=== PATIENT | female | born 1940 | race Caucasian/White ===

== ENCOUNTER → 2016-10-19 | Outpatient (CLI) | payer OTHER ==
--- NOTE | 2016-10-19 09:46 | US ---
Bilateral Duplex/Doppler Carotid Sonography History: Right-sided neck pain, atherosclerosis on dental x-ray. Comparison: Carotid ultrasound September 08, 2013. Technique: The cervical portions of the carotid and vertebral arteries were imaged and interrogated by color and pulsed Duplex/Doppler. Spectral analysis was performed. Findings Right Carotid: Right CCA peak systolic velocity = 77 cm/sec Right ECA peak systolic velocity = 58 cm/sec Right ICA peak systolic velocity = 66 cm/sec Right ICA/CCA systolic velocity ratio = 0.9 Velocities correlate to less than 50 % diameter stenosis of the origin of the right internal carotid artery with respect to the normal distal internal carotid artery. There is slight increase in mild to moderate calcified plaque involving the right carotid bulb and proximal right internal carotid arter y. Left Carotid: Left CCA peak systolic velocity = 75 cm/sec Left ECA peak systolic velocity = 63 cm/sec Left ICA peak systolic velocity = 75 cm/sec Left ICA/CCA systolic velocity ratio = 1.0 Velocities correlate to less than 50 % diameter stenosis of the origin of the left internal carotid a rtery with respect to the normal distal internal carotid artery. There is slight increase in mild to moderate calcified plaque involving the left carotid bulb and proximal left internal carotid artery. Vertebral Arteries: Antegrade flow is shown by pulsed Doppler of each vertebral artery. Impression: No hemodynamically significant stenosis by systolic velocity criteria. Measurement of carotid stenosis is based on velocity parameters that correlate the residual internal carotid diameter with [place] Symptomatic Carotid Endarterectomy Trial (NASCET) based stenosis levels.
--- NOTE | 2016-10-19 10:26 | US ---
Ultrasound Neck Soft Tissues History: D72.820, lymphocytosis (symptomatic), E78.2 mixed hyperlipidemia, I10 essential (primary) h ypertension, I65.23 occlusion and stenosis of bilateral carotid arteries, M54.2 cervicalgia, Z82.49, family history of ischemic heart disease and other diseases of the circulatory system. Right anterio r cervical tenderness with no palpable mass. Technique: Longitudinal and transverse ultrasound imaging of the right neck soft tissues. Findings: A few benign-appearing right anterior neck lymph nodes less than a centimeter in size witho ut significant adenopathy. No focal fluid collections or abscess identified. In the right lobe of the thyroid there is a solid heterogenous 1.1 x 0.9 x 0.8 cm thyroid nodule. Impression: 1. No source for the patient's right-sided neck pain. 2. Right-sided 1.1 cm thyroid nodule for which follow-up ultrasound thyroid in six months is recommen ded. 3. Consider CT neck soft tissues or MRI cervical spine if there is continued clinical concern for rig ht neck pain.
== END ==
LOC: CIMAGING 08:14
PROVIDERS: ATTEND Family Medicine
DX: E04.1 Nontoxic single thyroid nodule (principal); M54.2 Cervicalgia; D72.820 Lymphocytosis (symptomatic); E78.2 Mixed hyperlipidemia; I10 Essential (primary) hypertension; I65.23 Occlusion and stenosis of bilateral carotid arteries; Z82.49 Family history of ischemic heart disease and other diseases of the circulatory system
CPT/HCPCS: 76536-PO; 93880-PO

== ENCOUNTER → 2017-05-15 | Outpatient (CLI) | payer OTHER | LOC: FIMAGING 08:14 | PROVIDERS: ATTEND Family Medicine | DX: E04.1 Nontoxic single thyroid nodule (principal) ==

== ENCOUNTER → 2017-06-12 | Outpatient (CLI) | payer OTHER | LOC: FIMAGING 07:31 | PROVIDERS: ATTEND Family Medicine | DX: Z12.31 Encounter for screening mammogram for malignant neoplasm of breast (principal) | CPT/HCPCS: G0202 ==

== ENCOUNTER → 2017-11-20 | Outpatient (CLI) | payer OTHER | LOC: FIMAGING 14:03 | PROVIDERS: ATTEND Family Medicine | DX: E04.2 Nontoxic multinodular goiter (principal) ==

== ENCOUNTER 2017-11-22 05:36 | Observation (INO) | payer OTHER ==
[2017-11-22] MEDS ORDERED: LIDOCAINE 1% 2 ML INJ ID PRN (06:02)
[2017-11-22] MEDS ORDERED: LR 1,000 ML IV ONE (06:02)
[2017-11-22] MEDS ORDERED: ceFAZolin 2 GM/SWFI 2 GM/20 ML SYR IVP ONE (06:47)
[2017-11-22] MEDS ORDERED: ACETAMINOPHEN 500 MG TAB PO ONE (06:47)
--- NOTE | 2017-11-22 06:48 | PDHPUP ---
History & Physical Update H&P update statement: This history and physical update is based on an assessment of the patient which was completed after admission or registration (within 24 hours), but prior to the surgery/procedure. H&P update: H&P reviewed & patient examined, no change in patient's condition since H&P completed
[2017-11-22] MEDS ORDERED: BUPIVACAINE 0.25% 30 ML SDV ONE ×2 (07:00→07:16)
[2017-11-22] MEDS ORDERED: THROMBIN (BOVINE) 5,000 UNIT VIAL TP ONE (07:00)
[2017-11-22] MEDS ORDERED: BACITRACIN 50,000 UNITS/10 ML SYR IRR ONE (07:00)
[2017-11-22] MEDS ORDERED: CHLORHEXIDINE GLUC HIBICLENS 118 ML BTL TP ONE (07:00)
[2017-11-22] MEDS ORDERED: DEPO METHYLPREDNISOLONE 40 MG/ML SDV ONE (07:16)
[2017-11-22] MEDS ORDERED: fentaNYL 250 MCG/5 ML INJ ONE (07:23)
[2017-11-22] MEDS ORDERED: PROPOFOL 200 MG/20 ML VIAL ONE (07:24)
[2017-11-22] MEDS ORDERED: PROPOFOL/EMULSION 500 MG/50 ML BOTTLE IV ONE (07:54)
--- NOTE | 2017-11-22 08:27 | PDANEPAE ---
ANE Past Medical History - Cardiovascular History Hx Hypertension: Yes Hx Arrhythmias: No Hx Chest Pain: No Hx Coronary Artery / Peripheral Vascular Disease: No Hx CHF / Valvular Disease: No Hx Palpitations: No Cardiovascular History Comment: WHITE COAT SYNDROME - Pulmonary History Hx COPD: No Hx Asthma/Reactive Airway Disease: No Hx Recent Upper Respiratory Infection: No Hx Oxygen in Use at Home: No Hx Sleep Apnea: No Sleep Apnea Screening Result - Last Documented: Negative Pulmonary History Comment: INFLUENZA 08/2017 - Neurologic History Hx Cerebrovascular Accident: No Hx Seizures: No Hx Dementia: No - Endocrine History Hx Diabetes: No - Renal History Hx Renal Disorders: No - Liver History Hx Hepatic Disorders: No - Neurological & Psychiatric Hx Hx Neurological and Psychiatric Disorders: Yes Neurological / Psychiatric History Comment: ANXIETY - Cancer History Hx Cancer: Yes Cancer History Comment: SKIN - Congenital Disorder History Hx Congenital Disorders: No - GI History Hx Gastrointestinal Disorders: Yes Gastrointestinal History Comment: REFLUX. PREV GI ULCER N-SAID RELATED - Other Health History Other Health History: CHRONIC INSOMNIA. LT FOOT N/T. VERTIGO 2 YRS AGO - Chronic Pain History Chronic Pain: Yes (LOWER BACK,BUTTOCKS AND DOWN BOTH LEGS) - Surgical History Prior Surgeries: RUSS X2. MOH'S FOR SKIN CA. LT KNEE SCOPE 1998 ANE Review of Systems Review of Systems: - Exercise capacity METS (RN): 4 METS ANE Patient History - Allergies Allergies/Adverse Reactions: lactose Allergy (Verified 11/21/17 14:55) - Home Medications Home Medications: Aspirin 325 mg (OTC) DAILY 09/28/13 [Last Taken 11/19/17] Benicar DAILY06 09/28/13 [Last Taken 11/21/17] Hydrochlorothiazide DAILY06 09/28/13 [Last Taken 11/21/17] Lipitor 10 mg (RX) DAILY06 09/28/13 [Last Taken 11/22/17 04:45] Omeprazole DAILY06 09/28/13 [Last Taken 11/22/17 04:45] Amlodipine Besylate HS 11/21/17 [Last Taken 11/21/17] Atenolol BID 11/21/17 [Last Taken 11/22/17 04:45] Coq-10 DAILY 11/21/17 [Last Taken 11/21/17] Fish Oil 1000 mg (*) DAILY 11/21/17 [Last Taken 11/21/17] Herbals/Supplements -Info Only DAILY 11/21/17 [Last Taken 11/21/17] Multivitamin (*) DAILY 11/21/17 [Last Taken 11/21/17] Tumeric DAILY 11/21/17 [Last Taken 11/21/17] - NPO status NPO Since - Liquids (Date): 11/21/17 NPO Since - Liquids (Time): 04:45 NPO Since - Solids (Date): 11/21/17 NPO Since - Solids (Time): 18:00 - Smoking Hx Smoking Status: Never smoked ANE Labs/Vital Signs - Labs Result Diagrams: 11/22/17 06:35 - Vital Signs Blood Pressure: 162/64 Heart Rate: 60 Respiratory Rate: 16 O2 Sat (%): 97 Height: 152.4 cm Weight: 47.627 kg
[2017-11-22] MEDS ORDERED: fentaNYL 100 MCG/2 ML INJ IVP PRN (08:30)
[2017-11-22] MEDS ORDERED: NALOXONE HCL 0.4 MG/ML INJ IVP PRN (08:30)
[2017-11-22] MEDS ORDERED: PROMETHAZINE HCL 25 MG/ML INJ IVP PRN (08:30)
[2017-11-22] MEDS ORDERED: LABETALOL HCL 5 MG/ML 20 ML MDV IVP PRN (08:30)
--- NOTE | 2017-11-22 08:30 | PDANEPAE ---
ANE Past Medical History - Cardiovascular History Hx Hypertension: Yes Hx Arrhythmias: No Hx Chest Pain: No Hx Coronary Artery / Peripheral Vascular Disease: No Hx CHF / Valvular Disease: No Hx Palpitations: No Cardiovascular History Comment: WHITE COAT SYNDROME - Pulmonary History Hx COPD: No Hx Asthma/Reactive Airway Disease: No Hx Recent Upper Respiratory Infection: No Hx Oxygen in Use at Home: No Hx Sleep Apnea: No Sleep Apnea Screening Result - Last Documented: Negative Pulmonary History Comment: INFLUENZA 08/2017 - Neurologic History Hx Cerebrovascular Accident: No Hx Seizures: No Hx Dementia: No - Endocrine History Hx Diabetes: No - Renal History Hx Renal Disorders: No - Liver History Hx Hepatic Disorders: No - Neurological & Psychiatric Hx Hx Neurological and Psychiatric Disorders: Yes Neurological / Psychiatric History Comment: ANXIETY - Cancer History Hx Cancer: Yes Cancer History Comment: SKIN - Congenital Disorder History Hx Congenital Disorders: No - GI History Hx Gastrointestinal Disorders: Yes Gastrointestinal History Comment: REFLUX. PREV GI ULCER N-SAID RELATED - Other Health History Other Health History: CHRONIC INSOMNIA. LT FOOT N/T. VERTIGO 2 YRS AGO - Chronic Pain History Chronic Pain: Yes (LOWER BACK,BUTTOCKS AND DOWN BOTH LEGS) - Surgical History Prior Surgeries: RUSS X2. MOH'S FOR SKIN CA. LT KNEE SCOPE 1998 ANE Review of Systems Review of Systems: - Exercise capacity METS (RN): 4 METS ANE Patient History - Allergies Allergies/Adverse Reactions: lactose Allergy (Verified 11/21/17 14:55) - Home Medications Home Medications: Aspirin 325 mg (OTC) DAILY 09/28/13 [Last Taken 11/19/17] Benicar DAILY06 09/28/13 [Last Taken 11/21/17] Hydrochlorothiazide DAILY06 09/28/13 [Last Taken 11/21/17] Lipitor 10 mg (RX) DAILY06 09/28/13 [Last Taken 11/22/17 04:45] Omeprazole DAILY06 09/28/13 [Last Taken 11/22/17 04:45] Amlodipine Besylate HS 11/21/17 [Last Taken 11/21/17] Atenolol BID 11/21/17 [Last Taken 11/22/17 04:45] Coq-10 DAILY 11/21/17 [Last Taken 11/21/17] Fish Oil 1000 mg (*) DAILY 11/21/17 [Last Taken 11/21/17] Herbals/Supplements -Info Only DAILY 11/21/17 [Last Taken 11/21/17] Multivitamin (*) DAILY 11/21/17 [Last Taken 11/21/17] Tumeric DAILY 11/21/17 [Last Taken 11/21/17] - NPO status NPO Since - Liquids (Date): 11/21/17 NPO Since - Liquids (Time): 04:45 NPO Since - Solids (Date): 11/21/17 NPO Since - Solids (Time): 18:00 - Smoking Hx Smoking Status: Never smoked ANE Labs/Vital Signs - Labs Result Diagrams: 11/22/17 06:35 - Vital Signs Blood Pressure: 162/64 Heart Rate: 60 Respiratory Rate: 16 O2 Sat (%): 97 Height: 152.4 cm Weight: 47.627 kg ANE Physical Exam - Airway Neck exam: FROM Mallampati Score: Class 1 Mouth exam: normal dental/mouth exam - Pulmonary Pulmonary: no respiratory distress - Cardiovascular Cardiovascular: regular rate and rhythym - ASA Status ASA Status: II ANE Anesthesia Plan Anesthesia Plan: general endotracheal anesthesia
[2017-11-22] MEDS ORDERED: hydrALAZINE 20 MG/ML VIAL IVP PRN (08:31)
[2017-11-22] MEDS ORDERED: ROCURONIUM 50 MG/5 ML VIAL ONE (08:51)
[2017-11-22] MEDS ORDERED: LIDOCAINE 2% 5 ML SDV ONE (08:51)
[2017-11-22] MEDS ORDERED: SUGAMMADEX SODIUM 200 MG/2 ML VIAL IVP ONE (09:37)
--- NOTE | 2017-11-22 09:41 | POSTOPPROG ---
Post Op Note Date of Operation: 11/22/17 Surgeon: Ailyn Ortiz Animal Care Technician: Cherise Ching NP Anesthesia: GET(General Endotracheal) Pre-op Diagnosis: Lumbar stenosis Procedure: L3-4 laminectomy Inf/Abcess present in the surg proc area at time of surgery?: No Depth: Deep Incisional (Fascial) EBL: 50-100 Total fluids administered: see anesthesia Complications: none Date of Surgery: 11/22/17 Post Op Day: 0 Assessment/Plan: Assessment: 77 yr old s/p L3-4 laminectomy for lower back and bilateral leg pain Plan: -initially following surgery, patient had no pain in PACU, she then began to experience terrible RLE pain. Toradol given -Will admit patient for observation/pain control -PT/OT -Please call neurosurgery with any questions/concerns Subjective: Patient waking up in PACU Objective: Waking up in PACU PERRLA No facial droop 5/5 BLE, BUE Sensation intact to light touch BLE Dressing CDI Appropriate Neuro Check Frequency Ordered: Yes
[2017-11-22] MEDS ORDERED: METHOCARBAMOL 750 MG TAB PO PRN (09:47)
[2017-11-22] MEDS: HYDROCODONE/APAP 5/325 TAB PO PRN ×3 (11:19→23:38)
[2017-11-22] MEDS ORDERED: MAGNESIUM HYDROXIDE 30 ML UDCUP PO PRN (11:30)
[2017-11-22] MEDS ORDERED: LACTULOSE 20 GM/30 ML UDCUP PO PRN (11:30)
[2017-11-22] MEDS ORDERED: ONDANSETRON DISINTEGRATING 4 MG TAB PO PRN (11:30)
[2017-11-22] MEDS ORDERED: ONDANSETRON 4 MG/2 ML VIAL IVP PRN (11:30)
[2017-11-22] MEDS ORDERED: POLYETHYLENE GLYCOL 3350 17 GM PKT PO PRN (11:30)
[2017-11-22] MEDS ORDERED: BISACODYL 10 MG SUPP PR PRN (11:30)
[2017-11-22] MEDS ORDERED: diphenhydrAMINE 25 MG CAP PO PRN (11:30)
[2017-11-22] MEDS ORDERED: KETOROLAC 30 MG/1 ML SDV IVP ONE (12:01)
[2017-11-22] MEDS ORDERED: DIAZEPAM 2 MG TAB PO PRN (12:01)
--- NOTE | 2017-11-22 13:20 | GOP ---
[f rep st] OPERATIVE REPORT DATE OF OPERATION: 11/22/2017 SURGEON: Maggie Ortiz MD BUSINESS ANALYSIS ANALYST: Cherise Ching, Nurse Practitioner PREOPERATIVE DIAGNOSIS: 1. Severe spinal stenosis, L3-4 with bilateral lumbosacral radiculopathy. 2. Severe disk degenerative disease L2-3. 3. Lumbar spondylolisthesis L5-S1. 4. Multilevel lumbar spondylosis. POSTOPERATIVE DIAGNOSIS: 1. Severe spinal stenosis, L3-4 with bilateral lumbosacral radiculopathy. 2. Severe disk degenerative disease L2-3. 3. Lumbar spondylolisthesis L5-S1. 4. Multilevel lumbar spondylosis. PROCEDURE PERFORMED: Bilateral L3-4 laminectomy with medial facetectomy and microdiskectomy ([id number], microscope). FINDINGS: ESTIMATED BLOOD LOSS: 25 cc. INDICATIONS: The patient is a 77-year-old who really is having great difficulty walking because of t errible pain radiating down the right leg, and she developed numbness in the left leg. She had bilat eral symptoms. The MRI of her lumbar spine demonstrates a very large central and right paracentral d isk protrusion at L3-4, in combination with severe facet arthropathy. There is even a mild degree of spondylolisthesis there, although really this was quite minimal. She had severe ligamentum flavum h ypertrophy and facet arthropathy at that level, and I suggested a bilateral decompression with a lumb ar laminectomy. The possible need for additional surgery, the risk of CSF leak, continued symptoms w ere discussed. She knew that we were not going to fix all of the degenerative problems in her spine, but our goal was to try to get her some relief of the radiating leg pain. She knew these risks and she wanted to proceed. DESCRIPTION OF PROCEDURE: Patient was taken to the operating room, placed in the supine position. G eneral anesthesia was begun. She was flipped prone onto the Piotr frame. Care was taken to pad all points of contact. Her back was sterilely prepped and draped in the usual fashion. A localizing x- ray was taken. We made a 2 cm incision above the L3-4 interspace. A self-retaining retractor was pl aced as we dissected down through the fascia, and a subperiosteal dissection was made down the lamina of L3-4. A localizing x-ray was taken. Under the operating microscope, we drilled a rostral L4 [place] inotomy and an inferior L3 bilateral hemilaminotomy with bilateral medial facetectomies and opened li gamentum flavum. There was very severe spinal stenosis, and we worked our way out laterally to the l ateral edge of the thecal sac, undercutting the facet joints bilaterally from the L4 pedicle all the way up to the inferior L3 pedicle, and a great bilateral decompression was performed. We then went f rom the right-hand side, swept the thecal sac and the traversing L4 nerve root medially from the righ t and in a central location underneath the thecal sac was a large subligamentous free disk fragment h erniation contained by the posterior and longitudinal ligament. It was difficult to separate the dur a from this, but we continued working, and then we found a small window into this pocket where the di sk was and we opened it with a black hook. We did not use a blade. After this was done, we were abl e to deliver some small fragments which further freed up the dura, and then we were able to squeeze t he remaining free fragment disk out from underneath the PLL using the ball-tip probe. We did not agg ressively go into the L3-4 disk. The PLL remained intact. We then irrigated large amounts of antibi otic saline and then closed the incision in multiple layers using Vicryl sutures. There were no comp lications. The patient tolerated the procedure well. COMPLICATIONS: None. /[id number]/MODL
[2017-11-22] MEDS ORDERED: ACETAMINOPHEN 500 MG TAB PO SCH (14:00)
[2017-11-22] MEDS: GABAPENTIN 300 MG CAP PO SCH ×2 (14:08→20:16)
[2017-11-22] MEDS ORDERED: KETOROLAC 15 MG/1 ML SDV IVP PRN (14:49)
[2017-11-22] MEDS ORDERED: ACETAMINOPHEN 325 MG TAB PO PRN (14:50)
[2017-11-22] MEDS: SENNOSIDES/DOCUSATE SODIUM TAB PO SCH (20:16)
[2017-11-22] MEDS: ATENOLOL 25 MG TAB PO SCH (20:16)
[2017-11-22] MEDS: FAMOTIDINE 20 MG TAB PO SCH (20:16)
[2017-11-22] MEDS ORDERED: amLODIPine BESYLATE 5 MG TAB PO SCH (21:00)
[2017-11-23 05:25] VITALS: O2SAT 93
[2017-11-23] MEDS: GABAPENTIN 300 MG CAP PO SCH (05:30)
[2017-11-23 07:17] VITALS: BP 151/68; PULSE 66; RESP 14; TEMP 98.4
[2017-11-23] MEDS: HYDROCODONE/APAP 5/325 TAB PO PRN ×2 (07:47→12:24)
[2017-11-23] MEDS: SENNOSIDES/DOCUSATE SODIUM TAB PO SCH (07:47)
[2017-11-23] MEDS: ATENOLOL 25 MG TAB PO SCH (07:48)
[2017-11-23] MEDS: FAMOTIDINE 20 MG TAB PO SCH (07:48)
[2017-11-23] MEDS ORDERED: OLMESARTAN MEDOXOMIL 20 MG TAB PO SCH (09:00)
[2017-11-23] MEDS ORDERED: HYDROCHLOROTHIAZIDE 25 MG TAB PO SCH (09:00)
[2017-11-23] MEDS ORDERED: ATORVASTATIN CALCIUM 20 MG TAB PO SCH (09:00)
--- NOTE | 2017-11-23 10:58 | NEUSURGPN ---
Date of Surgery: 11/22/17 Post Op Day: 1 Assessment/Plan: 77 yo female s/p L3/4 laminectomy POD #1 - neuro stable - leg pain improved compared to immediately postop period yesterday - PT/OT - pain controlled - discharge to home today Discussed with Dr. Ortiz Subjective: Pain improved compared to yesterday. Still having some bilateral LE pain similar to before surgery. Objective: Awake. Alert. Following commands Muscle strength full at 5/5 Sensation intact - Physician Discussed Patient with : [facility] Physical Exam - Vitals, I&O, Labs I and O 11/22/17 11/23/17 11/24/17 05:59 05:59 05:59 Intake Total 1570 Output Total 1475 Balance 95 Weight 47.627 kg 47.627 kg Intake: Oral (ml) 470 IV Intake (ml) 1100 Output: Urine (ml) 1450 Toilet 1450 Estimated Blood Loss (ml) 25 Other: Number of Voids Toilet 1 Vital Signs Temp Pulse Resp BP Pulse Ox 36.9 C 66 14 151/68 H 93 11/23/17 07:16 11/23/17 07:16 11/23/17 07:16 11/23/17 07:16 11/23/17 07:16 Laboratory Results 11/22/17 06:35 ICD10 Worksheet Patient Problems: Problems Problem Status Onset Lumbar stenosis Acute - ICD10 Problem Qualifiers (1) Lumbar stenosis
--- NOTE | 2017-11-23 12:45 | PDIAF ---
- Diagnosis Diagnosis: Lumbar stenosis Code Status: Full Code - Medication Management Discharge Medications: Medications to Continue on Transfer Atorvastatin Calcium [Lipitor 20 mg (*)] 20 mg PO DAILY #0 09/28/13 [Last Taken 11/22/17 04:45] Hydrochlorothiazide [HCTZ (*)] 25 mg PO DAILY #0 09/28/13 [Last Taken 11/21/17] Olmesartan Medoxomil [Benicar 20 mg (*)] 40 mg PO DAILY #0 09/28/13 [Last Taken 11/21/17] Omeprazole Magnesium [Prilosec] 10 mg PO DAILY #0 09/28/13 [Last Taken 11/22/17 04:45] Atenolol [Tenormin 25 mg (*)] 25 mg PO BID #0 11/21/17 [Last Taken 11/22/17 04: 45] Herbals/Supplements -Info Only 1 ea PO DAILY #0 11/21/17 [Last Taken Unknown] Multivitamins [Multivitamin (*)] 1 each PO DAILY #0 11/21/17 [Last Taken ] [place]-3 Fatty Acids [Fish Oil 1000 mg (*)] 1,000 mg PO DAILY #0 11/21/17 [Last Taken 11/21/17] amLODIPine BESYLATE [Norvasc 5 mg (*)] 5 mg PO HS #0 11/21/17 [Last Taken ] Hydrocodone/APAP 5/325 [[place] 5/325 (*)] 1 tab PO Q4HRS PRN #60 tab 11/22/17 [ Last Taken Unknown] Methocarbamol [Robaxin 750 mg (*)] 750 mg PO TID PRN #60 tab 11/22/17 [Last Taken Unknown] Ranitidine HCl [Zantac] 300 mg PO HS 11/22/17 [Last Taken 11/21/17] Suvorexant [Belsomra] 10 mg PO HS PRN 11/22/17 [Last Taken 4 Days Ago ~11/18/17] Aspirin 325 mg (OTC) 325 mg PO DAILY #30 11/29/17 [Last Taken Unknown] Discharge Medications: Refer to the Discharge Home Medication list for PRN reason. - Orders Services needed: Home Care, Physical Therapy, Occupational Therapy Home Care Face to Face: I certify that this patient was under my care and that I had the required [id number] encounter meeting the encounter requirements on the discharge day. My findings support the fact that the patient is homebound as defined in Home Care Face to Face Continued: CMS Chapter 7 Medicare Benefits Manual 30.1.1 , The condition of the patient is such that there exists a normal inability to leave home and consequently, leaving home would require a considerable and taxing effort. Diet Recommendation: no restrictions on diet Diet Texture: Regular Texture Diet Wound Care Instructions: Ok to shower on Saturday. Be gentle, no scrubbing. Sutures/[place] Site: Follow up with Dr. Ortiz in 2 weeks to check incision. Activity/Weight Bearing Restrictions: No lifting more than 10 pounds or bending/ twisting. - Follow Up Care Current Providers and Referrals: Bertha Olivia MD [Primary Care Provider] - Ailyn Ortiz MD [Medical Doctor] - follow up in 2 weeks
--- NOTE | 2017-11-23 15:02 | ASDISCHSUM ---
Discharge Information Plan Status: Medically Cleared to Leave: Discharge Date:11/23/2017 01:05 PM D/C Disposition: ADT D/C Disposition:Home, Routine, Self-Care Projected Discharge Date:11/23/2017 11:00 AM Transportation at D/C: Discharge Delay Reason: Follow-Up Date:11/23/2017 11:00 AM Discharge Slot: Final Diagnosis: Placement Information Referral Type:*Home Health Care Services Referral ID:[id number] Provider Name:[facility] Address 1:[address] Address 2: City:[place] Selection Factors: State:[place] Patient Contact Information Contact Name:GUSTAVO Relationship: Address:[address] [place] [address] City:[place] Alternate Phone: State/Zip Code:[place] [address] Email: Financial Information Financial Class:Medicare Advantage Plans Primary Plan Desc:[facility] AD[employer] PLANS Primary Plan Number:[id number] Secondary Plan Desc: Secondary Plan Number: Assessment Information Case Management Discharge Plan Note Case Management Discharge Discharge Order Complete? Answers: Yes Transportation Arranged Answers: Family/Friends Faxed Final Orders Answers: Yes Family Notified Answers: Yes Discharge Comments Notes: Patient discharged home with . Home PT/OT with [facility] [place] to call report. Date Signed: 11/23/2017 12:52 PM Electronically Signed By:Rachele Child RN Intervention Information
[2017-11-25] MEDS ORDERED: ENOXAPARIN 40 MG/0.4 ML SYR SC SCH (09:00)
--- NOTE | 2017-11-26 14:41 | GDS ---
[f rep st] DISCHARGE SUMMARY PRIMARY DIAGNOSIS: Lumbar stenosis. OPERATIONS AND PROCEDURES: L3-4 laminectomy on November 22, 2017. HOSPITAL COURSE: Patient is a 77-year-old female who was brought into the hospital on November 22, 2017 for a scheduled L3-[address] Ortiz. The patient's preoperative symptoms were primaril y lower back pain with bilateral leg symptoms. The patient tolerated the procedure without complicat ion and initially woke up in the postanesthesia care unit without any leg pain at all. The patient w as then transitioning, preparing to get discharged home and began to experience intense right posteri or leg pain. Patient was given [place] and gabapentin, and admitted to the floor for observation. Lori lim's right leg pain ultimately resolved with the pain medications and gabapentin. Patient was disc harged home on November 23, 2017. COMPLICATIONS: None. CONSULTATIONS: None. DISCHARGE CONDITION: Stable. DISCHARGE INSTRUCTIONS: Patient is to avoid any bending or twisting at the waist and is not to lift any more than 10 pounds for the next 2 weeks. Patient will leave dressing on for 3 days and then may remove in shower at that time. Patient instructed to limit her showers to approximately 5 minutes f or the first 2 to 3 weeks following surgery. The patient will leave the Steri-Strips in place and is scheduled to follow up with us in the office for her routine 2 week postop visit. Patient is instru cted to call our office sooner with any questions or concerns regarding her surgery. /[id number]/MODL
--- NOTE | 2017-11-28 07:55 | GPROG ---
[f rep st] PROGRESS NOTE The patient's cardiovascular status is normal, stable. The patient's mental status is slightly sedated, easily arousable. Nausea/vomiting control are satisfactory at this time with p.r.n. treatment ordered. Pain control is satisfactory at this time with the p.r.n. treatment ordered. Complications due to anesthesia are none noted at this time. /[id number]/MODL
== END 2017-11-23 13:05 | disposition home health service (06) ==
LOC: FSGY 05:36 → F3N 11:30
PROVIDERS: ADMIT Neurological Surgery; ATTEND Neurological Surgery
PROC: 00NY0ZZ Release Lumbar Spinal Cord, Open Approach (ICD-10-PCS; principal; 2017-11-22 07:30)
PROC: 0SB20ZZ Excision of Lumbar Vertebral Disc, Open Approach (ICD-10-PCS; principal; 2017-11-22 07:30)
PROC: BR191ZZ Fluoroscopy of Lumbar Spine using Low Osmolar Contrast (ICD-10-PCS; 2017-11-22 07:30)
DX: M48.061 Spinal stenosis, lumbar region without neurogenic claudication (principal); G89.18 Other acute postprocedural pain; M54.16 Radiculopathy, lumbar region; M54.17 Radiculopathy, lumbosacral region; M43.17 Spondylolisthesis, lumbosacral region; M47.817 Spondylosis without myelopathy or radiculopathy, lumbosacral region; F51.01 Primary insomnia; M51.36 Other intervertebral disc degeneration, lumbar region; I10 Essential (primary) hypertension
CPT/HCPCS: 63047; 76001; 97116; 97161; 97165; 97530; 97535; G0378; G8978; G8979; G8987; G8988; J0171; J0690; J2704; J3010; J1030

== ENCOUNTER 2017-11-26 15:47 | Inpatient (IN) | payer OTHER ==
[2017-11-26] MEDS ORDERED: DIAZEPAM 5 MG/ML 1 ML SYR IVP PRN (17:03)
[2017-11-26] MEDS ORDERED: ONDANSETRON DISINTEGRATING 4 MG TAB PO PRN (17:25)
[2017-11-26] MEDS ORDERED: diphenhydrAMINE 25 MG CAP PO PRN (17:25)
[2017-11-26] MEDS ORDERED: ACETAMINOPHEN 325 MG TAB PO PRN (17:25)
[2017-11-26] MEDS ORDERED: ONDANSETRON 4 MG/2 ML VIAL IVP PRN (17:25)
[2017-11-26] MEDS ORDERED: MAGNESIUM HYDROXIDE 30 ML UDCUP PO PRN (17:25)
[2017-11-26] MEDS ORDERED: HYDROCODONE/APAP 5/325 TAB PO PRN (17:25)
[2017-11-26] MEDS ORDERED: POLYETHYLENE GLYCOL 3350 17 GM PKT PO PRN (17:25)
[2017-11-26] MEDS ORDERED: HYDROmorphone HCL/NS 0.5 MG/ML SYR IVP PRN (17:25)
[2017-11-26] MEDS ORDERED: ZOLPIDEM TARTRATE 5 MG TAB PO PRN (17:25)
[2017-11-26] MEDS ORDERED: LACTULOSE 20 GM/30 ML UDCUP PO PRN (17:25)
[2017-11-26] MEDS ORDERED: NALOXONE HCL 0.4 MG/ML INJ IVP PRN (17:25)
[2017-11-26] MEDS ORDERED: BISACODYL 10 MG SUPP PR PRN (17:25)
[2017-11-26] MEDS ORDERED: NS 1,000 ML IV SCH (17:30)
[2017-11-26] MEDS: oxyCODONE IR 5 MG TAB PO PRN (17:54)
[2017-11-26 19:16] LABS: PLATELET COUNT 357 10^3/uL (150-400)
[2017-11-26 19:32] LABS: INR 0.9 (0.83-1.16); PROTIME(PATIENT) 12.4 SEC (12.0-15.0)
[2017-11-26] MEDS: HYDROmorphONE/DILAUDID 6 MG/30 ML PCA IV PRN (20:24)
[2017-11-26] MEDS: DIAZEPAM 5 MG TAB PO PRN (22:28)
[2017-11-26] MEDS: SENNOSIDES/DOCUSATE SODIUM TAB PO SCH (22:32)
[2017-11-27] MEDS: DIAZEPAM 5 MG TAB PO PRN (05:38)
[2017-11-27] MEDS ORDERED: ceFAZolin 2 GM/SWFI 2 GM/20 ML SYR IVP ONE (06:00)
[2017-11-27] MEDS ORDERED: SUVOREXANT 10 MG PO PRN (07:22)
--- NOTE | 2017-11-27 07:26 | PDGENHP ---
History and Physical - Chief Complaint BLE pain/lumbar stenosis - History of Present Illness H and P in paper form on chart dated 11/26/17 History Information - Allergies/Home Medication List Allergies/Adverse Reactions: No Known Drug Allergies Allergy (Unknown, Unverified 11/24/17 08:23) apple Allergy (Verified 11/22/17 14:36) Slovan And Derivatives [citrus] Allergy (Verified 11/22/17 14:36) gluten Allergy (Verified 11/22/17 14:36) lactose Allergy (Verified 11/21/17 14:55) soy Allergy (Verified 11/22/17 14:36) Home Medications: Atorvastatin Calcium [Lipitor 20 mg (*)] 20 mg PO DAILY #0 09/28/13 [Last Taken 11/26/17] Hydrochlorothiazide [HCTZ (*)] 25 mg PO DAILY #0 09/28/13 [Last Taken 11/26/17] Olmesartan Medoxomil [Benicar 20 mg (*)] 40 mg PO DAILY #0 09/28/13 [Last Taken 11/26/17] Omeprazole Magnesium [Prilosec] 10 mg PO DAILY #0 09/28/13 [Last Taken 11/26/17] Atenolol [Tenormin 25 mg (*)] 25 mg PO BID #0 11/21/17 [Last Taken 11/26/17] Herbals/Supplements -Info Only 1 ea PO DAILY #0 11/21/17 [Last Taken 11/26/17] Multivitamins [Multivitamin (*)] 1 each PO DAILY #0 11/21/17 [Last Taken ] [place]-3 Fatty Acids [Fish Oil 1000 mg (*)] 3,000 mg PO DAILY #0 11/21/17 [Last Taken 11/26/17] amLODIPine BESYLATE [Norvasc 5 mg (*)] 5 mg PO HS #0 11/21/17 [Last Taken ] Ranitidine HCl [Zantac] 300 mg PO HS 11/22/17 [Last Taken 11/25/17] Suvorexant [Belsomra] 10 mg PO HS PRN 11/22/17 [Last Taken 4 Days Ago ~11/18/17] Methocarbamol [Robaxin 750 mg (*)] 750 mg PO Q6H PRN 11/26/17 [Last Taken 07:30] I have personally reviewed and updated: family history, medical history, social history, surgical history - Social History Smoking Status: Never smoked Review of Systems Review of Systems: Physical Exam Physical Exam: Temp Pulse Resp BP Pulse Ox 36.7 C 76 18 168/57 H 96 11/27/17 04:20 11/27/17 04:20 11/27/17 04:20 11/27/17 04:20 11/27/17 04:20 Lab Data & Imaging Review 11/26/17 19:08 11/26/17 19:08 WBC 11.87 10^3/uL (3.80-9.50) H 11/26/17 19:08 RBC 3.87 10^6/uL (4.18-5.33) L 11/26/17 19:08 Hgb 11.4 g/dL (12.6-16.3) L 11/26/17 19:08 Hct 32.3 % (38.0-47.0) L 11/26/17 19:08 MCV 83.5 fL (81.5-99.8) 11/26/17 19:08 MCH 29.5 pg (27.9-34.1) 11/26/17 19:08 MCHC 35.3 g/dL (32.4-36.7) 11/26/17 19:08 RDW 13.6 % (11.5-15.2) 11/26/17 19:08 Plt Count 357 10^3/uL (150-400) 11/26/17 19:08 MPV 9.5 fL (8.7-11.7) 11/26/17 19:08 Neut % (Auto) 71.1 % (39.3-74.2) 11/26/17 19:08 Lymph % (Auto) 17.6 % (15.0-45.0) 11/26/17 19:08 [place] % (Auto) 7.5 % (4.5-13.0) 11/26/17 19:08 Eos % (Auto) 2.7 % (0.6-7.6) 11/26/17 19:08 Baso % (Auto) 0.7 % (0.3-1.7) 11/26/17 19:08 Nucleat RBC Rel Count 0.0 % (0.0-0.2) 11/26/17 19:08 Absolute Neuts (auto) 8.44 10^3/uL (1.70-6.50) H 11/26/17 19:08 Absolute Lymphs (auto) 2.09 10^3/uL (1.00-3.00) 11/26/17 19:08 Absolute Monos (auto) 0.89 10^3/uL (0.30-0.80) H 11/26/17 19:08 Absolute Eos (auto) 0.32 10^3/uL (0.03-0.40) 11/26/17 19:08 Absolute Basos (auto) 0.08 10^3/uL (0.02-0.10) 11/26/17 19:08 Absolute Nucleated RBC 0.00 10^3/uL (0-0.01) 11/26/17 19:08 Immature Gran % 0.4 % (0.0-1.1) 11/26/17 19:08 Immature Gran # 0.05 10^3/uL (0.00-0.10) 11/26/17 19:08 PT 12.4 SEC (12.0-15.0) 11/26/17 19:08 INR 0.90 (0.83-1.16) 11/26/17 19:08 Sodium 135 mEq/L (135-145) 11/26/17 19:08 Potassium 3.6 mEq/L (3.5-5.2) 11/26/17 19:08 Chloride 97 mEq/L (97-110) 11/26/17 19:08 Carbon Dioxide 24 mEq/l (22-31) 11/26/17 19:08 Anion Gap 14 mEq/L (8-16) 11/26/17 19:08 BUN 16 mg/dL (7-23) 11/26/17 19:08 Creatinine 1.0 mg/dL (0.6-1.0) 11/26/17 19:08 Estimated GFR 54 11/26/17 19:08 Glucose 83 mg/dL (70-100) 11/26/17 19:08 Calcium 9.2 mg/dL (8.5-10.4) 11/26/17 19:08
[2017-11-27] MEDS ORDERED: (Suvorexant [Belsomra] 10 MG) PO PRN (07:28)
--- NOTE | 2017-11-27 07:29 | NEUSURGPN ---
Assessment/Plan: Assessment: 77 yo female that is s/p L3/4 lami with new onset of BLE pain Plan: -pt had onset of BLE pain and a new MRI shows stenosis at L2/3 and post op hematoma at L3/4 -pt started ASA/fish oil on Saturday-medications held -pt set for surgery today -pt marked -orders in place -consents signed and pt understands risks and need for surgery -pt seen by Dr Ortiz -call with any questions or concerns -pt understands and agrees, she wants to proceed Subjective: Awake and alert. NAD. No N/V/D. NPO. No new events overnight Objective: AAO x 3, PERRLA/EOMI no droop CN 2-12 grossly intact +lt touch 5/5 BUE/BLE = CDI Neuro Check Frequency: per routine Urinary Catheter in Place: No - Physician Discussed Patient with : Angel Patient Seen by : Angel Neurosurgery Physical Exam - Vitals, I&O, Labs I and O 11/26/17 11/27/17 11/28/17 05:59 05:59 05:59 Intake Total 1329 Balance 1329 Weight 47.627 kg Intake: Oral (ml) 350 IV Intake (ml) 979 Other: Number of Voids Toilet 2 Number of Stools Toilet 1 Vital Signs Temp Pulse Resp BP Pulse Ox 36.7 C 76 18 168/57 H 96 11/27/17 04:20 11/27/17 04:20 11/27/17 04:20 11/27/17 04:20 11/27/17 04:20 Laboratory Results 11/26/17 19:08 11/26/17 19:08 ICD10 Worksheet Patient Problems: Problems Problem Status Onset Lumbar stenosis Acute
[2017-11-27] MEDS: HYDROmorphONE/DILAUDID 6 MG/30 ML PCA IV PRN (08:28)
[2017-11-27] MEDS: OLMESARTAN MEDOXOMIL 20 MG TAB PO SCH (08:37)
[2017-11-27] MEDS: ATENOLOL 25 MG TAB PO SCH ×2 (08:38→21:41)
[2017-11-27] MEDS: PANTOPRAZOLE SODIUM 40 MG TAB PO SCH (08:39)
[2017-11-27] MEDS: HYDROCHLOROTHIAZIDE 25 MG TAB PO SCH (08:39)
[2017-11-27] MEDS: oxyCODONE IR 5 MG TAB PO PRN ×2 (08:40→17:53)
[2017-11-27] MEDS: METHOCARBAMOL 750 MG TAB PO PRN ×2 (08:40→21:42)
[2017-11-27] MEDS ORDERED: OMEPRAZOLE MAGNESIUM 10 MG PO SCH (09:00)
[2017-11-27] MEDS ORDERED: BUPIVACAINE 0.25% 30 ML SDV ONE (09:38)
[2017-11-27] MEDS ORDERED: DEPO METHYLPREDNISOLONE 40 MG/ML SDV ONE (09:39)
[2017-11-27] MEDS ORDERED: THROMBIN (BOVINE) 5,000 UNIT VIAL TP ONE ×2 (09:39→10:26)
[2017-11-27] MEDS ORDERED: BACITRACIN 50,000 UNITS/10 ML SYR IRR ONE ×2 (09:39→10:38)
[2017-11-27] MEDS ORDERED: CHLORHEXIDINE GLUC HIBICLENS 118 ML BTL TP ONE (09:39)
[2017-11-27] MEDS: ATORVASTATIN CALCIUM 20 MG TAB PO SCH (09:55)
[2017-11-27] MEDS: SENNOSIDES/DOCUSATE SODIUM TAB PO SCH ×2 (09:56→21:40)
--- NOTE | 2017-11-27 09:57 | PDANEPAE ---
ANE History of Present Illness 77 YO female s/p L3/4 laminectomy with bleed now and worsened problems at L2/3. ANE Past Medical History - Cardiovascular History Hx Hypertension: Yes Hx Arrhythmias: No Hx Chest Pain: No Hx Coronary Artery / Peripheral Vascular Disease: No Hx CHF / Valvular Disease: No Hx Palpitations: No Cardiovascular History Comment: WHITE COAT SYNDROME. hypercholesterolemia - Pulmonary History Hx COPD: No Hx Asthma/Reactive Airway Disease: No Hx Recent Upper Respiratory Infection: No Hx Oxygen in Use at Home: No Hx Sleep Apnea: No Pulmonary History Comment: INFLUENZA 08/2017 - Neurologic History Hx Cerebrovascular Accident: No Hx Seizures: No Hx Dementia: No - Endocrine History Hx Diabetes: No Hypothyroid: No Obesity: no - Renal History Hx Renal Disorders: No - Liver History Hx Hepatic Disorders: No - Neurological & Psychiatric Hx Hx Neurological and Psychiatric Disorders: Yes Neurological / Psychiatric History Comment: ANXIETY. insomnia - uses CBD 3 x/ week - Cancer History Hx Cancer: Yes Cancer History Comment: SKIN - Congenital Disorder History Hx Congenital Disorders: No - GI History Hx Gastrointestinal Disorders: Yes Gastrointestinal History Comment: REFLUX. PREV GI ULCER N-SAID RELATED - Other Health History Other Health History: CHRONIC INSOMNIA. LT FOOT N/T. VERTIGO 2 YRS AGO. OA knees - Chronic Pain History Chronic Pain: Yes (LOWER BACK,BUTTOCKS AND DOWN BOTH LEGS) - Surgical History Prior Surgeries: RUSS X2. MOH'S FOR SKIN CA. LT KNEE SCOPE 1998 ANE Review of Systems Review of Systems: - Systems Constitutional: Reports: no symptoms Cardiac: Reports: no symptoms Respiratory: Reports: no symptoms ANE Patient History - Allergies Allergies/Adverse Reactions: No Known Drug Allergies Allergy (Unknown, Unverified 11/24/17 08:23) apple Allergy (Verified 11/22/17 14:36) [place] And Derivatives [citrus] Allergy (Verified 11/22/17 14:36) gluten Allergy (Verified 11/22/17 14:36) lactose Allergy (Verified 11/21/17 14:55) soy Allergy (Verified 11/22/17 14:36) - Home Medications Home Medications: Atorvastatin Calcium [Lipitor 20 mg (*)] 20 mg PO DAILY #0 09/28/13 [Last Taken 11/26/17] Hydrochlorothiazide [HCTZ (*)] 25 mg PO DAILY #0 09/28/13 [Last Taken 11/26/17] Olmesartan Medoxomil [Benicar 20 mg (*)] 40 mg PO DAILY #0 09/28/13 [Last Taken 11/26/17] Omeprazole Magnesium [Prilosec] 10 mg PO DAILY #0 09/28/13 [Last Taken 11/26/17] Atenolol [Tenormin 25 mg (*)] 25 mg PO BID #0 11/21/17 [Last Taken 11/26/17] Herbals/Supplements -Info Only 1 ea PO DAILY #0 11/21/17 [Last Taken 11/26/17] Multivitamins [Multivitamin (*)] 1 each PO DAILY #0 11/21/17 [Last Taken ] [place]-3 Fatty Acids [Fish Oil 1000 mg (*)] 3,000 mg PO DAILY #0 11/21/17 [Last Taken 11/26/17] amLODIPine BESYLATE [Norvasc 5 mg (*)] 5 mg PO HS #0 11/21/17 [Last Taken ] Ranitidine HCl [Zantac] 300 mg PO HS 11/22/17 [Last Taken 11/25/17] Suvorexant [Belsomra] 10 mg PO HS PRN 11/22/17 [Last Taken 4 Days Ago ~11/18/17] Methocarbamol [Robaxin 750 mg (*)] 750 mg PO Q6H PRN 11/26/17 [Last Taken 07:30] - NPO status NPO Status: no food or drink >8 hours - Anes Hx Anes Hx: post operative cognitive dysfunction - Smoking Hx Smoking Status: Never smoked Marijuana use: Yes - Alcohol Use Alcohol Use: Rarely - Family Anes Hx Family Anes Hx: neg - N/A ANE Labs/Vital Signs - Labs Result Diagrams: 11/26/17 19:08 11/26/17 19:08 - Vital Signs Blood Pressure: 155/50 Heart Rate: 75 Respiratory Rate: 16 O2 Sat (%): 96 Height: 152.4 cm Weight: 47.627 kg ANE Physical Exam - Airway Neck exam: FROM Mallampati Score: Class 2 Mouth exam: normal dental/mouth exam - Pulmonary Pulmonary: clear to auscultation - Cardiovascular Cardiovascular: regular rate and rhythym - ASA Status ASA Status: III ANE Anesthesia Plan Anesthesia Plan: general endotracheal anesthesia Lines/Monitors: additional IV
[2017-11-27] MEDS ORDERED: DIAZEPAM 5 MG/ML 1 ML SYR IVP ONE (09:59)
--- NOTE | 2017-11-27 10:04 | ASMTCMCOM ---
CM Note CM Note Notes: Patient here to have surgery for a post-op hematoma at L3/4. She had a L3/4 laminectomy 11/22 and discharged home with home PT. She subsequently started to experience BLE pain. Patient lives with . [facility] will continue to follow. Patient will have PT/OT evals after surgery to help determine discharge needs. Date Signed: 11/27/2017 10:03 AM Electronically Signed By:Rachele Child RN
[2017-11-27] MEDS ORDERED: LR 1,000 ML IV ONE (10:11)
[2017-11-27] MEDS ORDERED: LIDOCAINE 2% 5 ML SDV ONE (10:14)
[2017-11-27] MEDS ORDERED: ROCURONIUM 50 MG/5 ML VIAL ONE (10:14)
[2017-11-27] MEDS ORDERED: PROPOFOL/EMULSION 500 MG/50 ML BOTTLE IV ONE (10:14)
[2017-11-27] MEDS ORDERED: DEXAMETHASONE 4 MG/ML VIAL ONE (10:14)
[2017-11-27] MEDS ORDERED: fentaNYL 100 MCG/2 ML INJ ONE (10:18)
[2017-11-27] MEDS ORDERED: KETAMINE 200 MG/20 ML VIAL ONE (10:18)
[2017-11-27] MEDS ORDERED: DIAZEPAM 5 MG/ML 1 ML SYR ONE ×2 (10:21→12:26)
[2017-11-27] MEDS ORDERED: ceFAZolin 1 GM VIAL ONE (10:38)
[2017-11-27] MEDS ORDERED: ONDANSETRON 4 MG/2 ML VIAL ONE (11:50)
[2017-11-27] MEDS ORDERED: PROMETHAZINE HCL 25 MG/ML INJ IVP PRN (11:59)
[2017-11-27] MEDS ORDERED: LR 500 ML IV PRN (11:59)
[2017-11-27] MEDS ORDERED: NALOXONE HCL 0.4 MG/ML INJ IVP PRN (11:59)
[2017-11-27] MEDS ORDERED: ALBUTEROL 3 ML DEYVIAL IH PRN (11:59)
[2017-11-27] MEDS ORDERED: oxyCODONE IR 5 MG TAB PO PRN (11:59)
--- NOTE | 2017-11-27 12:22 | POSTANESTH ---
Post Anesthetic Evaluation Cardiovascular Status: Normal, Stable Respiratory Status: Normal, Stable Level of Consciousness/Mental Status: Can Participate in Eval, Mildly Sleepy, Arousable Pain Control: Inadeq, Add Tx Required (pain is rated at 4-5/10. About the same as pre-op) Nausea/Vomiting Control: Adequate, Prn Tx Ordered Complications Possibly Related to Anesthesia: None Noted
[2017-11-27] MEDS: DIAZEPAM 5 MG/ML 1 ML SYR IVP PRN ×2 (12:27→12:55)
[2017-11-27] MEDS ORDERED: HYDROmorphONE/DILAUDID 1 MG/ML INJ IVP PRN (12:49)
--- NOTE | 2017-11-27 12:49 | SOAPPROG ---
SOAP Progress Note Assessment/Plan: Post Op Visit: S: Awake and alert. NAD. Pt with some expected lower back pain. Legs feel "better" O: AFVSS/PERRLA/EOMI no droop CN 2-12 grossly intact +lt touch 5/5 BUE/BLE = CDI A/P: 77 yo female that is s/p L3/4 reexploration and L2/3 lami -orders in place -call with any questions or concerns -pt seen by Dr Ortiz as well - updated 11/27/17 12:46 Objective: Vital Signs Temp Pulse Resp BP Pulse Ox 36.8 C 80 14 124/44 H 100 11/27/17 12:19 11/27/17 12:18 11/27/17 12:36 11/27/17 12:36 11/27/17 12:36 Laboratory Results 11/26/17 19:08 11/26/17 19:08 11/26/17 11/27/17 11/28/17 05:59 05:59 05:59 Intake Total 1329 Output Total 0 Balance 1329 0 PT 12.4 SEC (12.0-15.0) 11/26/17 19:08 INR 0.90 (0.83-1.16) 11/26/17 19:08 ICD10 Worksheet Patient Problems: Problems Problem Status Onset Lumbar stenosis Acute
[2017-11-27] MEDS ORDERED: NS W/ 20 KCl/L 1,000 ML IV SCH (13:00)
[2017-11-27] MEDS ORDERED: HYDROmorphone HCL/NS 0.5 MG/ML SYR IVP PRN (13:00)
--- NOTE | 2017-11-27 13:05 | PDMN ---
Medical Necessity Medical necessity: M63 back Pain A-1 days: back pain req SAF[employer]T INST[employer]ER for pain, sgy pending.
--- NOTE | 2017-11-27 13:22 | GOP ---
[f rep st] OPERATIVE REPORT DATE OF OPERATION: 11/27/2017 SURGEON: Maggie Ortiz MD [facility] MANAGER: Milton Sinclair PA-C PREOPERATIVE DIAGNOSIS: 1. Lumbar stenosis lumbar levels 2-3. 2. Postoperative lumbar hematoma lumbar levels 3-4. 3. Severe bilateral lumbosacral radiculopathy. POSTOPERATIVE DIAGNOSIS: 1. Lumbar stenosis lumbar levels 2-3. 2. Postoperative lumbar hematoma lumbar levels 3-4. 3. Severe bilateral lumbosacral radiculopathy. PROCEDURE PERFORMED: Lumbar levels 2-3 laminectomy with bilateral medial facetectomy and decompressi on of central spinal canal lumbar levels 2-3 (CPT Code 61822), exploration of the lumbar 3-4 levels, evacuation of subfascial hematoma, microscope. FINDINGS: ESTIMATED BLOOD LOSS: 10 cc. INDICATIONS: The patient is an elderly female who underwent an uncomplicated L3-4 laminectomy with a diskectomy last week because of a large ruptured disk at the L3-4 level. On her preop MRI, she did have a measure of spinal stenosis at L2-3 and she had significant left lateral recess stenosis at L4- 5, L5-S1, but we elected to treat only a single-level. Postoperatively, in the recovery room, she murphy d significant return of right leg pain, but then went up to the hospital floor and was doing much bet ter later in the day after the surgery. Then, the next day after surgery, she continued to be better than preop, but was discharged home, and she was having right leg pain at that time. The pain did w orsen over the weekend, and when we touched base with her on Saturday, the pain was really worse now th an it had been prior to the last surgery and I suggested an MRI. We were able to chat late Saturday af stefania. We got the MRI set up for Saturday and this was done and she came to see us in the o ffice. She was really in exquisite pain. She could barely walk because of pain, although she had go od strength in her legs. She was having severe spasms and shooting pain down the backs of both legs. The left was not clearly worse than the right. This was bilateral in nature. Her MRI demonstrated postoperative hematoma at L3-4, but this higher field MRI also demonstrated pretty severe stenosis a t the L2-3 level that I did not appreciate on her preop film prior to the last surgery. I suggested re-exploration at L3-4 and extending her laminae up to the L2-3 level, because I thought this too cou ld be contributing to some of her difficulty. The risks of spinal fluid leak, continued symptoms, re current hematoma were discussed. She knew that she may fail to get benefit from surgery, but surgery was a reasonable treatment option, particularly in view of her discomfort. She also had severe left -sided findings at L4-5 and L5-S1, and a degenerative scoliotic curve, but I had no plans for treatin g these other levels, as her symptoms were bilateral, most consistent with a central process rather t erwin the unilateral process only. She understood the risk of surgery and she wanted to proceed. DESCRIPTION OF PROCEDURE: The patient was taken to the operating room, placed in the supine position . General anesthesia was begun. She was flipped prone onto the Piotr frame. Care was taken to pad all points of contact. Her back was sterilely prepped and draped in usual fashion. We denuded the prior scab from her previous incision and then she was re-prepped and then she was sterilely draped. We opened the prior incision with a scalpel blade and extended it rostrally about 0.5 cm. The subcu taneous tissue was dissected using Bovie cautery down through the fascia and we divided the old sutur es at the L3-4 site. We extended this rostrally up to the L2 spinous process. We then removed the r esidual L3 spinous process and then thinned out the rostral lamina of L3. The operating microscope w as introduced. She did have a hematoma in the epidural space at L3-4. It was well organized, it was not liquid, but there was a mass at this side, and we evacuated this. We then removed the rostral l ip of L3 and continued working our way underneath the ligamentum flavum to decompress the L2-3 level. We undercut the L2 lamina and worked our way out laterally into the neural foramen at each side and we got a great central and lateral recess decompression at L2-3. We preserved the L2-3 facet joints . There was actually pretty severe stenosis, and the right was somewhat worse at L2-3 than the left, but there was very severe stenosis on both sides, and I was very happy that we made the decision to decompress this. We went down to the L3-4 level. We inspected the rostral lamina of L4. I did not remove any additional lamina of L4. We exposed the traversing L4 roots bilaterally. We swept the ri ght-sided L4 nerve root medially and inspected the 3-4 disk again. There were some very tiny central free disk fragments that had emanated through the annular defect that was created by the prior disk herniation itself, and these were removed. We then irrigated with antibiotic saline solution. We co uld not detect any additional free fragments of disk. We then placed a subfascial drain and closed t he incision in multiple layers using Vicryl sutures. Running PDS was placed in the skin itself. The patient was reversed from anesthesia, extubated, and transferred to the recovery room in stable cond ition. COMPLICATIONS: None. /[id number]/MODL
[2017-11-27] MEDS ORDERED: ceFAZolin 2 GM/DEXTROSE 100 ML IV SCH (14:00)
[2017-11-27] MEDS: ACETAMINOPHEN 500 MG TAB PO SCH ×2 (15:33→21:41)
[2017-11-27] MEDS: ceFAZolin 2 GM/SWFI 2 GM/20 ML SYR IVP SCH ×2 (15:33→21:40)
[2017-11-27] MEDS: GABAPENTIN 300 MG CAP PO SCH ×2 (15:33→21:42)
[2017-11-27] MEDS ORDERED: ceFAZolin 2 GM/DEXTROSE 100 ML IV ONE (16:30)
[2017-11-27] MEDS ORDERED: NON-FORMULARY NEW DRUG (Ranitidine Hcl [Zantac] 300 MG) PO SCH (21:00)
[2017-11-27] MEDS ORDERED: FAMOTIDINE 20 MG TAB PO SCH (21:00)
[2017-11-27] MEDS: amLODIPine BESYLATE 5 MG TAB PO SCH (21:42)
[2017-11-28] MEDS: ACETAMINOPHEN 500 MG TAB PO SCH ×3 (05:15→21:12)
[2017-11-28] MEDS: GABAPENTIN 300 MG CAP PO SCH ×3 (05:16→21:18)
[2017-11-28] MEDS: oxyCODONE IR 5 MG TAB PO PRN ×4 (05:17→21:19)
--- NOTE | 2017-11-28 08:35 | NEUSURGPN ---
Date of Surgery: 11/27/17 Post Op Day: 1 Assessment/Plan: Assessment: 77 yo female that is s/p L3/4 reexploration and L2/3 lami POD #1 Plan: -s/p L3/4 and L2/3 lami-doing well and is pleased with results, spasms better -pt is happier -GUILLE in place -plan for PT/OT today -plan for dc in am -orders in place -call with any questions or concerns -pt seen by Dr Ortiz as well - updated Subjective: Awake and alert. NAD. Eating/drinking and voiding. No f/c/n/v/d. No murphy/neck/ chest/abd or gu complaints Objective: AFVSS/PERRLA/EOMI no droop CN 2-12 grossly intact +lt touch 5/5 BUE/BLE = CDI Neuro Check Frequency: per routine Urinary Catheter in Place: No - Physician Discussed Patient with : Angel Patient Seen by : Angel Neurosurgery Physical Exam - Vitals, I&O, Labs I and O 11/27/17 11/28/17 11/29/17 05:59 05:59 05:59 Intake Total 1329 3040 Output Total 36 Balance 1329 3004 Weight 47.627 kg 47.627 kg Intake: Oral (ml) 350 450 IV Intake (ml) 979 1600 IV Infused (ml) 990 NS W/ 20 KCl/L 1,000 ml @ 970 75 mls/hr IV CONT BISI Rx #:[id number] ceFAZolin 1 GM/DEXTROSE 20 50 ml @ 200 mls/hr IV ONCALL ONE Rx#:[id number] Output: Urine (ml) 1 Toilet 1 Estimated Blood Loss (ml) 10 GUILLE Drain Output (ml) 25 #1 Back Maury Rivera 25 Other: Intake Quantity Yes Sufficient Output Comment Toilet large amount Number of Voids Bedpan 1 Toilet 2 2 Number of Stools Incontinence 1 Toilet 1 Vital Signs Temp Pulse Resp BP Pulse Ox 36.7 C 64 14 131/56 H 99 11/28/17 07:38 11/28/17 07:38 11/28/17 07:38 11/28/17 07:38 11/28/17 07:38 Laboratory Results 11/26/17 19:08 11/26/17 19:08 ICD10 Worksheet Patient Problems: Problems Problem Status Onset Lumbar stenosis Acute
[2017-11-28] MEDS: ATORVASTATIN CALCIUM 20 MG TAB PO SCH (09:30)
[2017-11-28] MEDS: PANTOPRAZOLE SODIUM 40 MG TAB PO SCH ×2 (09:30→21:18)
[2017-11-28] MEDS: SENNOSIDES/DOCUSATE SODIUM TAB PO SCH ×2 (09:31→21:18)
[2017-11-28] MEDS: OLMESARTAN MEDOXOMIL 20 MG TAB PO SCH (09:31)
[2017-11-28] MEDS: ATENOLOL 25 MG TAB PO SCH ×2 (09:31→21:16)
[2017-11-28] MEDS: HYDROCHLOROTHIAZIDE 25 MG TAB PO SCH (09:31)
--- NOTE | 2017-11-28 11:23 | ASMTCMCOM ---
CM Note CM Note Notes: DC plan remains for pt ot dc home and be followed by [facility]. Pt lives w/ who works geotechnical department manager but she said he will be off for the first few days that she comes home. Pt shared w/both myself and her floor RN, Iva that she was feeling down/depressed. She said she has had some depression in past and she feels this is situational related to her health issues and sleeping issues. I asked if she would like to speak further about this w/geriatric social worker and she declined saying she has people she can talk to and that her is psychologist. Discussed with RN, Missy who will share this w/MD or PA. Pt is open to [facility] for PT services. Date Signed: 11/28/2017 11:23 AM Electronically Signed By:Cele Barth RN
[2017-11-28] MEDS: METHOCARBAMOL 750 MG TAB PO PRN ×2 (14:35→21:19)
[2017-11-28] MEDS: CALCIUM CARBONATE 500 MG CHEWABLE TAB PO PRN ×2 (14:40→21:19)
[2017-11-28] MEDS: amLODIPine BESYLATE 5 MG TAB PO SCH (21:13)
[2017-11-28] MEDS: FAMOTIDINE 20 MG TAB PO SCH (21:17)
[2017-11-29] MEDS: ACETAMINOPHEN 500 MG TAB PO SCH ×2 (05:38→15:09)
[2017-11-29] MEDS: GABAPENTIN 300 MG CAP PO SCH ×2 (05:38→15:09)
--- NOTE | 2017-11-29 07:07 | NEUSURGPN ---
Date of Surgery: 11/27/17 Post Op Day: 2 Assessment/Plan: Assessment: 77 yo female that is s/p L3/4 reexploration and L2/3 lami POD #2, patient doing much better Plan: -GUILLE x1, out before DC -PT/OT -plan for dc later today -call with any questions or concerns dw Dr. Ortiz Subjective: doing much better, state we fixed her. Objective: AFVSS/PERRLA/EOMI no droop CN 2-12 grossly intact +lt touch 5/5 BUE/BLE = CDI jpx1, minimal drainage, 25 out last 24 - Physician Discussed Patient with : Angel Neurosurgery Physical Exam - Vitals, I&O, Labs I and O 11/28/17 11/29/17 11/30/17 05:59 05:59 05:59 Intake Total 3040 1450 Output Total 36 Balance 3004 1450 Weight 47.627 kg Intake: Oral (ml) 450 1450 IV Intake (ml) 1600 IV Infused (ml) 990 NS W/ 20 KCl/L 1,000 ml @ 970 75 mls/hr IV CONT BISI Rx #:[id number] ceFAZolin 1 GM/DEXTROSE 20 50 ml @ 200 mls/hr IV ONCALL ONE Rx#:[id number] Output: Urine (ml) 1 Toilet 1 Estimated Blood Loss (ml) 10 GUILLE Drain Output (ml) 25 #1 Back Maury Rivera 25 Other: Intake Quantity Yes Yes Sufficient Output Comment Toilet large amount Number of Voids Bedpan 1 Toilet 2 1 Number of Stools Incontinence 1 Vital Signs Temp Pulse Resp BP Pulse Ox 36.6 C 68 15 154/57 H 98 11/28/17 23:12 11/28/17 23:12 11/28/17 23:12 11/28/17 23:12 11/28/17 23:12 Laboratory Results 11/26/17 19:08 11/26/17 19:08 ICD10 Worksheet Patient Problems: Problems Problem Status Onset Lumbar stenosis Acute
[2017-11-29 08:24] VITALS: BP 166/68; PULSE 66; RESP 14; TEMP 97.9; O2SAT 95
--- NOTE | 2017-11-29 08:37 | PDIAF ---
- Diagnosis Diagnosis: lumbar spinal stenosis s/p decompression Code Status: Full Code - Medication Management Discharge Medications: Medications to Continue on Transfer Atorvastatin Calcium [Lipitor 20 mg (*)] 20 mg PO DAILY #0 09/28/13 [Last Taken 11/26/17] Hydrochlorothiazide [HCTZ (*)] 25 mg PO DAILY #0 09/28/13 [Last Taken 11/26/17] Olmesartan Medoxomil [Benicar 20 mg (*)] 40 mg PO DAILY #0 09/28/13 [Last Taken 11/26/17] Omeprazole Magnesium [Prilosec] 10 mg PO DAILY #0 09/28/13 [Last Taken 11/26/17] Atenolol [Tenormin 25 mg (*)] 25 mg PO BID #0 11/21/17 [Last Taken 11/26/17] Herbals/Supplements -Info Only 1 ea PO DAILY #0 11/21/17 [Last Taken 11/26/17] Multivitamins [Multivitamin (*)] 1 each PO DAILY #0 11/21/17 [Last Taken ] [place]-3 Fatty Acids [Fish Oil 1000 mg (*)] 3,000 mg PO DAILY #0 11/21/17 [Last Taken 11/26/17] amLODIPine BESYLATE [Norvasc 5 mg (*)] 5 mg PO HS #0 11/21/17 [Last Taken ] Ranitidine HCl [Zantac] 300 mg PO HS 11/22/17 [Last Taken 11/25/17] Suvorexant [Belsomra] 10 mg PO HS PRN 11/22/17 [Last Taken 4 Days Ago ~11/18/17] Methocarbamol [Robaxin 750 mg (*)] 750 mg PO Q6H PRN 11/26/17 [Last Taken 07:30] Acetaminophen [Tylenol ES 500 mg (*)] 1,000 mg PO Q8HRS tab 11/29/17 [Last Taken Unknown] Aspirin 325 mg (OTC) 325 mg PO DAILY #30 11/29/17 [Last Taken 11/25/17] Gabapentin [Neurontin 300 MG (*)] 300 mg PO Q8HRS cap 11/29/17 [Last Taken Unknown] Sennosides/Docusate Sodium [Senokot-S] 1 - 2 tab PO BID tab 11/29/17 [Last Taken Unknown] oxyCODONE IR [Oxycodone Ir (*)] 5 - 10 mg PO Q3HRS PRN tab 11/29/17 [Last Taken Unknown] Discharge Medications: Refer to the Discharge Home Medication list for PRN reason. - Orders Services needed: Home Care, Physical Therapy Home Care Face to Face: I certify that this patient was under my care and that I had the required [id number] encounter meeting the encounter requirements on the discharge day. My findings support the fact that the patient is homebound as defined in Home Care Face to Face Continued: CMS Chapter 7 Medicare Benefits Manual 30.1.1 , The condition of the patient is such that there exists a normal inability to leave home and consequently, leaving home would require a considerable and taxing effort. Diet Recommendation: no restrictions on diet - Follow Up Care Current Providers and Referrals: Bertha Olivia MD [Primary Care Provider] -
[2017-11-29] MEDS: PANTOPRAZOLE SODIUM 40 MG TAB PO SCH (08:42)
[2017-11-29] MEDS: FAMOTIDINE 20 MG TAB PO SCH (08:42)
[2017-11-29] MEDS: ATORVASTATIN CALCIUM 20 MG TAB PO SCH (08:43)
[2017-11-29] MEDS: HYDROCHLOROTHIAZIDE 25 MG TAB PO SCH (08:43)
[2017-11-29] MEDS: ATENOLOL 25 MG TAB PO SCH (08:43)
[2017-11-29] MEDS: OLMESARTAN MEDOXOMIL 20 MG TAB PO SCH (08:44)
[2017-11-29] MEDS: SENNOSIDES/DOCUSATE SODIUM TAB PO SCH (08:44)
[2017-11-29] MEDS: CALCIUM CARBONATE 500 MG CHEWABLE TAB PO PRN (15:05)
[2017-11-30] MEDS ORDERED: ENOXAPARIN 40 MG/0.4 ML SYR SC SCH (09:00)
== END 2017-11-29 15:23 | disposition home health service (06) | DRG 519 ==
LOC: F3N 16:42 → PREOBSVTOIN 16:46
PROVIDERS: ADMIT Neurological Surgery; ATTEND Neurological Surgery
PROC: 00NY0ZZ Release Lumbar Spinal Cord, Open Approach (ICD-10-PCS; principal; 2017-11-27 17:30)
PROC: 00CU0ZZ Extirpation of Matter from Spinal Canal, Open Approach (ICD-10-PCS; principal; 2017-11-27 17:30)
PROC: 01NB0ZZ Release Lumbar Nerve, Open Approach (ICD-10-PCS; principal; 2017-11-27 17:30)
DX: M48.061 Spinal stenosis, lumbar region without neurogenic claudication (principal); L76.32 Postprocedural hematoma of skin and subcutaneous tissue following other procedure; M54.16 Radiculopathy, lumbar region; I10 Essential (primary) hypertension; E78.00 Pure hypercholesterolemia, unspecified; G47.00 Insomnia, unspecified
CPT/HCPCS: 97116-GP; 97162-GP; 97165-GO; 97535-GO; G8978-GP-CK; G8979-GP-CJ; G8987-GO-CI; G8988-GO-CI; J0690; J1030; J1100; J1170; J2270; J2405; J2704; J3010; J3360

== ENCOUNTER → 2017-11-26 | Outpatient (CLI) | payer OTHER | LOC: FIMAGING 11:37 | PROVIDERS: ATTEND Physician Assistant | DX: M51.86 Other intervertebral disc disorders, lumbar region (principal); M51.87 Other intervertebral disc disorders, lumbosacral region; M48.061 Spinal stenosis, lumbar region without neurogenic claudication; M48.07 Spinal stenosis, lumbosacral region ==

== ENCOUNTER → 2018-03-13 | Outpatient (CLI) | payer OTHER | LOC: BMCIMAGING 15:04 | PROVIDERS: ATTEND Registered Nurse | DX: M19.042 Primary osteoarthritis, left hand (principal) ==

== ENCOUNTER → 2018-03-18 | Outpatient (CLI) | payer OTHER | LOC: FIMAGING 13:00 | PROVIDERS: ATTEND Registered Nurse | DX: Z13.820 Encounter for screening for osteoporosis (principal); M85.89 Other specified disorders of bone density and structure, multiple sites; Z78.0 Asymptomatic menopausal state ==

== ENCOUNTER → 2018-07-01 | Outpatient (CLI) | payer OTHER | LOC: FIMAGING 09:32 | PROVIDERS: ATTEND Family Medicine | DX: Z12.31 Encounter for screening mammogram for malignant neoplasm of breast (principal) ==